=== PATIENT | male | born 1940 | race Caucasian/White ===

== ENCOUNTER 2017-02-09 12:33 | Outpatient (CLI) | payer MEDICARE ==
[2017-02-09 13:14] LABS: Anion Gap 13 mmol/L (10-20); BUN (Urea Nitrogen) 49 mg/dL (8.4-25.7); Calc. Creatinine Clearance 0 mL/min (70-130); Calcium 8.2 mg/dL (7.8-10.44); Carbon Dioxide 17 mmol/L (23-31); Chloride 110 mmol/L (98-107); Estimated GFR-MDRD 29; Glucose 249 mg/dL (83-110); Potassium 3.9 mmol/L (3.5-5.1); Sodium 136 mmol/L (136-145)
== END 2017-02-09 12:34 | disposition home or self-care (01) ==
LOC: MADLAB 12:33
PROVIDERS: ATTEND Internal Medicine Cardiovascular Disease
DX: I25.5 Ischemic cardiomyopathy (principal)
CPT/HCPCS: 36415; 80048

== ENCOUNTER 2017-02-20 13:34 | Outpatient (CLI) | payer MEDICARE ==
[2017-02-20 14:01] LABS: Anion Gap 13 mmol/L (10-20); BUN (Urea Nitrogen) 43 mg/dL (8.4-25.7); Calc. Creatinine Clearance 0 mL/min (70-130); Calcium 8.6 mg/dL (7.8-10.44); Carbon Dioxide 24 mmol/L (23-31); Chloride 105 mmol/L (98-107); Estimated GFR-MDRD 30; Glucose 247 mg/dL (83-110); Potassium 3.4 mmol/L (3.5-5.1); Sodium 139 mmol/L (136-145)
== END 2017-02-20 13:35 | disposition home or self-care (01) ==
LOC: MADLAB 13:34
PROVIDERS: ATTEND Internal Medicine Cardiovascular Disease
DX: I47.2 Ventricular tachycardia (principal); I48.0 Paroxysmal atrial fibrillation; I49.01 Ventricular fibrillation; M79.662 Pain in left lower leg
CPT/HCPCS: 36415; 80048

== ENCOUNTER 2017-06-08 13:13 | Outpatient (CLI) | payer MEDICARE ==
[2017-06-08 13:54] LABS: Anion Gap 13 mmol/L (10-20); BUN (Urea Nitrogen) 29 mg/dL (8.4-25.7); Calc. Creatinine Clearance 0 mL/min (70-130); Calcium 8.3 mg/dL (7.8-10.44); Carbon Dioxide 22 mmol/L (23-31); Cardiac Risk 2.8 (Less than 4.5); Chloride 107 mmol/L (98-107); Cholesterol 119 mg/dl (< 200 Desired); Estimated GFR-MDRD 41; Glucose 181 mg/dL (83-110); HDL Cholesterol 42 mg/dL (>60 Neg Risk); LDL Cholesterol, Calculated 57 mg/dL; Potassium 4.3 mmol/L (3.5-5.1); Sodium 138 mmol/L (136-145); Triglycerides 101 mg/dL (Less than 150)
== END 2017-06-08 13:14 | disposition home or self-care (01) ==
LOC: MADLAB 13:13
PROVIDERS: ATTEND Internal Medicine
DX: I25.10 Atherosclerotic heart disease of native coronary artery without angina pectoris (principal); I25.5 Ischemic cardiomyopathy; I10 Essential (primary) hypertension
CPT/HCPCS: 36415; 80048; 80061

== ENCOUNTER 2017-08-10 12:08 | Outpatient (CLI) | payer MEDICARE ==
[2017-08-10 12:50] LABS: Anion Gap 14 mmol/L (10-20); BUN (Urea Nitrogen) 27 mg/dL (8.4-25.7); Calc. Creatinine Clearance 0 mL/min (70-130); Calcium 8.1 mg/dL (7.8-10.44); Carbon Dioxide 23 mmol/L (23-31); Chloride 105 mmol/L (98-107); Estimated GFR-MDRD 36; Glucose 447 mg/dL (83-110); Potassium 3.5 mmol/L (3.5-5.1); Sodium 138 mmol/L (136-145)
== END 2017-08-10 12:09 | disposition home or self-care (01) ==
LOC: MADLAB 12:08
PROVIDERS: ATTEND Internal Medicine Cardiovascular Disease
DX: I25.10 Atherosclerotic heart disease of native coronary artery without angina pectoris (principal); I48.0 Paroxysmal atrial fibrillation; I47.2 Ventricular tachycardia; I25.5 Ischemic cardiomyopathy; M79.662 Pain in left lower leg; I49.01 Ventricular fibrillation; I10 Essential (primary) hypertension; Z95.0 Presence of cardiac pacemaker
CPT/HCPCS: 36415; 80048

== ENCOUNTER 2017-09-10 11:23 | Outpatient (CLI) | payer MEDICARE ==
[2017-09-10 11:33] LABS: Anion Gap 15 mmol/L (10-20); BUN (Urea Nitrogen) 29 mg/dL (8.4-25.7); Calc. Creatinine Clearance 0 mL/min (70-130); Calcium 8.2 mg/dL (7.8-10.44); Carbon Dioxide 19 mmol/L (23-31); Chloride 106 mmol/L (98-107); Estimated GFR-MDRD 41; Potassium 3.2 mmol/L (3.5-5.1); Sodium 137 mmol/L (136-145)
[2017-09-10 11:34] LABS: Glucose 270 mg/dL (83-110)
== END 2017-09-10 11:24 | disposition home or self-care (01) ==
LOC: MADLAB 11:23
PROVIDERS: ATTEND Internal Medicine Cardiovascular Disease
DX: I48.0 Paroxysmal atrial fibrillation (principal); I49.01 Ventricular fibrillation
CPT/HCPCS: 36415; 80048

== ENCOUNTER 2017-10-09 10:59 | Outpatient (CLI) | payer MEDICARE ==
[2017-10-09 11:39] LABS: Anion Gap 13 mmol/L (10-20); BUN (Urea Nitrogen) 28 mg/dL (8.4-25.7); Calc. Creatinine Clearance 0 mL/min (70-130); Calcium 8.4 mg/dL (7.8-10.44); Carbon Dioxide 22 mmol/L (23-31); Cardiac Risk 2.3 (Less than 4.5); Chloride 109 mmol/L (98-107); Cholesterol 102 mg/dl (< 200 Desired); Estimated GFR-MDRD 39; Glucose 127 mg/dL (83-110); HDL Cholesterol 44 mg/dL (>60 Neg Risk); LDL Cholesterol, Calculated 44 mg/dL; Potassium 3.5 mmol/L (3.5-5.1); Sodium 140 mmol/L (136-145); Triglycerides 71 mg/dL (Less than 150)
== END 2017-10-09 11:00 | disposition home or self-care (01) ==
LOC: MADLAB 10:59
PROVIDERS: ATTEND Internal Medicine Cardiovascular Disease
DX: I25.10 Atherosclerotic heart disease of native coronary artery without angina pectoris (principal); I10 Essential (primary) hypertension; I25.5 Ischemic cardiomyopathy
CPT/HCPCS: 36415; 80048; 80061

== ENCOUNTER 2017-12-10 13:07 | Outpatient (CLI) | payer MEDICARE | END 2017-12-10 13:08 | disposition home or self-care (01) | LOC: MADLAB 13:07 | PROVIDERS: ATTEND Internal Medicine Cardiovascular Disease | DX: I49.01 Ventricular fibrillation (principal); I48.0 Paroxysmal atrial fibrillation; I25.5 Ischemic cardiomyopathy; I25.10 Atherosclerotic heart disease of native coronary artery without angina pectoris; I47.2 Ventricular tachycardia; M79.662 Pain in left lower leg; I10 Essential (primary) hypertension; Z95.0 Presence of cardiac pacemaker | CPT/HCPCS: 36415; 84132 ==

== ENCOUNTER 2018-02-26 09:40 | Outpatient (CLI) | payer MEDICARE ==
[2018-02-26 10:43] LABS: ALT (SGPT) 65 U/L (8-55); AST (SGOT) 47 U/L (5-34); Albumin 3.6 g/dL (3.4-4.8); Alkaline Phosphatase 65 U/L (40-150); Anion Gap 16 mmol/L (10-20); BUN (Urea Nitrogen) 45 mg/dL (8.4-25.7); Bilirubin, Total 0.3 mg/dL (0.2-1.2); Calc. Creatinine Clearance 0 mL/min (70-130); Calcium 8.8 mg/dL (7.8-10.44); Carbon Dioxide 18 mmol/L (23-31); Chloride 112 mmol/L (98-107); Estimated GFR-MDRD 32; Globulin 2.4 g/dL (2.4-3.5); Potassium 3.5 mmol/L (3.5-5.1); Sodium 142 mmol/L (136-145)
[2018-02-26 11:58] LABS: Hemoglobin 14.4 g/dL (14.0-18.0); Mean Corpuscular HGB CONC 33.6 g/dL (32.0-36.0); Mean Corpuscular Hemoglobin 33.4 pg (27.0-31.0); Mean Corpuscular Volume 99.4 fL (78.0-98.0); Mean Platelet Volume 7.1 fL (7.4-10.4); Platelet Count 156 thou/uL (130-400); RBC Distribution Width 13.2 % (11.5-14.5); Red Blood Cell (RBC) Count 4.31 mill/uL (4.70-6.10); White Blood Cell (WBC) Count 9.1 thou/uL (4.8-10.8)
[2018-02-26 13:11] LABS: Eosinophils 5 % (0-10); Lymphocytes 31 % (21-51); MDiff Complete? YES; Monocytes 11 % (0-10); Neutrophil 53 % (42-75); PLT Morphology Comment Appears Adequate
[2018-02-26 13:19] LABS: Glucose 51 mg/dL (83-110)
== END 2018-02-26 09:41 | disposition home or self-care (01) ==
LOC: MADLABBHPM 09:40
PROVIDERS: ATTEND Internal Medicine Cardiovascular Disease
DX: I48.0 Paroxysmal atrial fibrillation (principal)
CPT/HCPCS: 36415; 80053; 84443; 85007; 85027

== ENCOUNTER 2018-03-12 09:37 | Outpatient (CLI) | payer MEDICARE ==
[2018-03-12 12:30] LABS: Anion Gap 18 mmol/L (10-20); BUN (Urea Nitrogen) 54 mg/dL (8.4-25.7); Calc. Creatinine Clearance 0 mL/min (70-130); Calcium 8.8 mg/dL (7.8-10.44); Carbon Dioxide 19 mmol/L (23-31); Chloride 108 mmol/L (98-107); Estimated GFR-MDRD 28; Glucose 241 mg/dL (83-110); Potassium 4.1 mmol/L (3.5-5.1); Sodium 141 mmol/L (136-145)
== END 2018-03-12 09:38 | disposition home or self-care (01) ==
LOC: MADLAB 09:37
PROVIDERS: ATTEND Internal Medicine Cardiovascular Disease
DX: I47.2 Ventricular tachycardia (principal); I48.0 Paroxysmal atrial fibrillation; I25.5 Ischemic cardiomyopathy
CPT/HCPCS: 36415; 80048

== ENCOUNTER 2018-03-27 10:17 | Outpatient (CLI) | payer MEDICARE ==
[2018-03-27 11:28] LABS: Anion Gap 15 mmol/L (10-20); BUN (Urea Nitrogen) 33 mg/dL (8.4-25.7); Calc. Creatinine Clearance 0 mL/min (70-130); Calcium 8.7 mg/dL (7.8-10.44); Carbon Dioxide 18 mmol/L (23-31); Chloride 108 mmol/L (98-107); Estimated GFR-MDRD 31; Glucose 393 mg/dL (83-110); Potassium 4.1 mmol/L (3.5-5.1); Sodium 137 mmol/L (136-145)
== END 2018-03-27 10:18 | disposition home or self-care (01) ==
LOC: MADLAB 10:17
PROVIDERS: ATTEND Internal Medicine Cardiovascular Disease
DX: I49.01 Ventricular fibrillation (principal); I48.0 Paroxysmal atrial fibrillation; I25.5 Ischemic cardiomyopathy; I47.2 Ventricular tachycardia
CPT/HCPCS: 36415; 80048

== ENCOUNTER 2018-05-15 10:04 | Outpatient (CLI) | payer MEDICARE ==
[2018-05-15 12:07] LABS: Anion Gap 12 mmol/L (10-20); BUN (Urea Nitrogen) 43 mg/dL (8.4-25.7); Calc. Creatinine Clearance 0 mL/min (70-130); Calcium 8.9 mg/dL (7.8-10.44); Carbon Dioxide 21 mmol/L (23-31); Chloride 111 mmol/L (98-107); Estimated GFR-MDRD 33; Glucose 74 mg/dL (83-110); Potassium 3.3 mmol/L (3.5-5.1); Sodium 141 mmol/L (136-145)
--- NOTE | 2018-05-15 12:13 | RAD ---
PA AND LATERAL CHEST: Date; 05/15/18 INDICATION: History of cough. COMPARISON: Prior exam dated 09/24/15. FINDINGS: Mild cardiomegaly is stable. AICD is unchanged. Midline sternotomy changes are similar. No pleural ef fusion or pneumothorax is evident. No acute osseous abnormality is noted. IMPRESSION: No definite acute cardiopulmonary abnormality. POS: [facility]
== END 2018-05-15 10:05 | disposition home or self-care (01) ==
LOC: MADLAB 10:04
PROVIDERS: ATTEND Internal Medicine Cardiovascular Disease
DX: R05 Cough (principal); I25.5 Ischemic cardiomyopathy; I47.2 Ventricular tachycardia; I48.0 Paroxysmal atrial fibrillation
CPT/HCPCS: 36415; 71046; 80048

== ENCOUNTER 2018-06-11 09:56 | Outpatient (CLI) | payer MEDICARE ==
[2018-06-11 10:56] LABS: Anion Gap 12 mmol/L (10-20); BUN (Urea Nitrogen) 42 mg/dL (8.4-25.7); Calc. Creatinine Clearance 0 mL/min (70-130); Calcium 8.6 mg/dL (7.8-10.44); Carbon Dioxide 23 mmol/L (23-31); Chloride 107 mmol/L (98-107); Estimated GFR-MDRD 32; Glucose 249 mg/dL (83-110); Potassium 3.5 mmol/L (3.5-5.1); Sodium 138 mmol/L (136-145)
== END 2018-06-11 09:57 | disposition home or self-care (01) ==
LOC: MADLAB 09:56
PROVIDERS: ATTEND Internal Medicine Cardiovascular Disease
DX: I25.5 Ischemic cardiomyopathy (principal); I47.2 Ventricular tachycardia; I48.0 Paroxysmal atrial fibrillation
CPT/HCPCS: 36415; 80048

== ENCOUNTER 2018-06-26 09:50 | Outpatient (CLI) | payer MEDICARE ==
[2018-06-26 10:43] LABS: Anion Gap 11 mmol/L (10-20); BUN (Urea Nitrogen) 33 mg/dL (8.4-25.7); Calc. Creatinine Clearance 0 mL/min (70-130); Calcium 8.6 mg/dL (7.8-10.44); Carbon Dioxide 21 mmol/L (23-31); Chloride 111 mmol/L (98-107); Estimated GFR-MDRD 33; Glucose 285 mg/dL (83-110); Potassium 3.7 mmol/L (3.5-5.1); Sodium 139 mmol/L (136-145)
== END 2018-06-26 09:51 | disposition home or self-care (01) ==
LOC: MADLAB 09:50
PROVIDERS: ATTEND Internal Medicine Cardiovascular Disease
DX: I25.5 Ischemic cardiomyopathy (principal); I47.2 Ventricular tachycardia; I48.0 Paroxysmal atrial fibrillation
CPT/HCPCS: 36415; 80048

== ENCOUNTER 2018-07-19 08:56 | Outpatient (CLI) | payer MEDICARE ==
[2018-07-19 09:31] LABS: Anion Gap 12 mmol/L (10-20); BUN (Urea Nitrogen) 28 mg/dL (8.4-25.7); Calc. Creatinine Clearance 0 mL/min (70-130); Calcium 9.3 mg/dL (7.8-10.44); Carbon Dioxide 25 mmol/L (23-31); Chloride 107 mmol/L (98-107); Estimated GFR-MDRD 37; Potassium 3.6 mmol/L (3.5-5.1); Sodium 140 mmol/L (136-145); Uric Acid 3.8 mg/dL (3.5-7.2)
[2018-07-19 10:07] LABS: Glucose 45 mg/dL (83-110)
[2018-07-19 17:15] LABS: CRP (Inflammatory) 10.33 mg/dL (= or < 0.5)
== END 2018-07-19 08:57 | disposition home or self-care (01) ==
LOC: MADLAB 08:56
PROVIDERS: ATTEND Internal Medicine Rheumatology
DX: M10.9 Gout, unspecified (principal); I25.5 Ischemic cardiomyopathy; I48.0 Paroxysmal atrial fibrillation; I47.2 Ventricular tachycardia
CPT/HCPCS: 36415; 80048; 84550; 85652; 86140

== ENCOUNTER 2018-08-28 11:07 | Outpatient (CLI) | payer MEDICARE ==
[2018-08-28 11:54] LABS: Anion Gap 12 mmol/L (10-20); BUN (Urea Nitrogen) 35 mg/dL (8.4-25.7); Calc. Creatinine Clearance 0 mL/min (70-130); Calcium 8.4 mg/dL (7.8-10.44); Carbon Dioxide 24 mmol/L (23-31); Chloride 105 mmol/L (98-107); Estimated GFR-MDRD 41; Glucose 286 mg/dL (83-110); Sodium 137 mmol/L (136-145)
== END 2018-08-28 11:08 | disposition home or self-care (01) ==
LOC: MADLAB 11:07
PROVIDERS: ATTEND Internal Medicine Cardiovascular Disease
DX: I25.5 Ischemic cardiomyopathy (principal); I48.0 Paroxysmal atrial fibrillation; I47.2 Ventricular tachycardia
CPT/HCPCS: 36415; 80048

== ENCOUNTER 2018-09-13 10:26 | Outpatient (CLI) | payer MEDICARE ==
[2018-09-13 11:06] LABS: Anion Gap 11 mmol/L (10-20); BUN (Urea Nitrogen) 39 mg/dL (8.4-25.7); Calc. Creatinine Clearance 0 mL/min (70-130); Calcium 8.3 mg/dL (7.8-10.44); Carbon Dioxide 23 mmol/L (23-31); Chloride 109 mmol/L (98-107); Estimated GFR-MDRD 34; Glucose 314 mg/dL (83-110); Potassium 4.1 mmol/L (3.5-5.1); Sodium 139 mmol/L (136-145)
== END 2018-09-13 10:27 | disposition home or self-care (01) ==
LOC: MADLAB 10:26
PROVIDERS: ATTEND Internal Medicine Cardiovascular Disease
DX: I47.2 Ventricular tachycardia (principal); I48.0 Paroxysmal atrial fibrillation; I25.5 Ischemic cardiomyopathy
CPT/HCPCS: 36415; 80048